=== PATIENT | female | born 1995 | race Caucasian/White ===

== ENCOUNTER → 2018-02-09 11:28 | Outpatient (CLI) | payer OTHER, SELFPAY ==
[2018-02-09 13:09] LABS: Estradiol 29.8 pg/mL; Prolactin 4.6 ng/mL
[2018-02-09 13:15] LABS: Pregnancy, Serum, hCG Quali. NEGATIVE Negative (0-9 Nonpreg)
[2018-02-11 20:05] LABS: DHEA Sulfate 368.2 ug/dL (110.0-431.7)
[2018-02-13 11:11] LABS: Testosterone Free 1.3 pg/mL (0.0-4.2)
== END ==
LOC: POLAB3 11:31
PROVIDERS: Family Provider Physician Assistant; PCP Physician Assistant; Visit Provider Nurse Practitioner Women's Health
DX: N92.6 Irregular menstruation, unspecified (principal)
CPT/HCPCS: 36415; 82627; 82670; 83001; 84146; 84402; 84443; 84703; 82626

== ENCOUNTER → 2019-06-06 14:54 | Outpatient (CLI) | payer OTHER, SELFPAY ==
[2018-02-09 11:08] VITALS: BMI 37.9
[2019-06-06 16:05] LABS: hCG Titer Quant., Serum < 1 mIU/mL (1-3)
== END ==
PROVIDERS: Nurse Practitioner Women's Health; Family Provider Family Medicine; PCP Family Medicine; Referring Provider Obstetrics & Gynecology; Visit Provider Obstetrics & Gynecology
DX: N92.6 Irregular menstruation, unspecified (principal)
CPT/HCPCS: 36415; 84702

== ENCOUNTER → 2019-09-06 14:25 | Outpatient (CLI) | payer OTHER, SELFPAY ==
[2019-08-20 13:50] VITALS: BMI 37.9
[2019-09-06 17:10] LABS: Estradiol 37.4 pg/mL; Follicle Stimulating Hormone 5.2 mIU/mL; Prolactin 9.8 ng/mL; T4 Free Direct 0.93 ng/dL (0.76-1.46); Thyroid Stim Hormone (TSH) 1.21 uIU/mL (0.358-3.74)
[2019-09-09 20:07] LABS: DHEA Sulfate 398.4 ug/dL (110.0-431.7)
[2019-09-10 11:35] LABS: Testosterone Free 2.6 pg/mL (0.0-4.2)
== END ==
LOC: PAVLAB 14:27
PROVIDERS: PCP Family Medicine; Visit Provider Obstetrics & Gynecology
DX: N92.6 Irregular menstruation, unspecified (principal); N91.1 Secondary amenorrhea
CPT/HCPCS: 36415; 82627; 82670; 83001; 84146; 84402; 84439; 84443; 82626

== ENCOUNTER → 2020-02-15 16:42 | Outpatient (CLI) | payer OTHER, SELFPAY ==
[2019-11-12 11:17] VITALS: BMI 37.9
[2020-02-15 17:41] LABS: hCG Titer Quant., Serum < 1 mIU/mL (1-3)
== END ==
PROVIDERS: PCP Family Medicine; Referring Provider Obstetrics & Gynecology; Visit Provider Obstetrics & Gynecology
DX: N92.6 Irregular menstruation, unspecified (principal)
CPT/HCPCS: 36415; 84702

== ENCOUNTER → 2020-05-06 11:06 | Outpatient (CLI) | payer OTHER, SELFPAY ==
[2019-11-12 11:17] VITALS: BMI 37.9
[2020-05-06 11:42] LABS: Thyroid Stim Hormone (TSH) 1.59 uIU/mL (0.358-3.74)
== END ==
PROVIDERS: PCP Family Medicine; Referring Provider Nurse Practitioner Women's Health; Visit Provider Nurse Practitioner Women's Health
DX: N97.0 Female infertility associated with anovulation (principal); Z13.29 Encounter for screening for other suspected endocrine disorder
CPT/HCPCS: 36415; 82670; 84443

== ENCOUNTER → 2020-08-18 15:28 | Outpatient (CLI) | payer OTHER, SELFPAY ==
[2020-08-18 14:53] VITALS: BMI 42.0
[2020-08-18 16:15] LABS: Hemoglobin A1c 5.2 % (3.8-5.6)
[2020-08-18 16:35] LABS: Follicle Stimulating Hormone 5.5 mIU/mL; Prolactin 9.5 ng/mL
[2020-08-18 16:36] LABS: hCG Titer Quant., Serum < 1 mIU/mL (1-3)
[2020-08-21 21:20] LABS: Testosterone Free 3.2 pg/mL (0.0-4.2)
== END ==
LOC: PAVLAB 15:31
PROVIDERS: PCP Family Medicine; Referring Provider Obstetrics & Gynecology; Visit Provider Obstetrics & Gynecology
DX: N92.6 Irregular menstruation, unspecified (principal)
CPT/HCPCS: 36415; 82627; 82670; 83001; 83036; 84146; 84402; 84443; 84702; 82626

== ENCOUNTER → 2020-08-21 14:18 | Outpatient (CLI) | payer OTHER, SELFPAY ==
[2020-08-18 14:53] VITALS: BMI 42.0
--- NOTE | 2020-08-21 14:20 | US_ITS ---
STUDY: ULTRASOUND OF THE FEMALE PELVIS - COMPLETE REASON FOR EXAM: Female, 25 years old. Irregular menses LMP: 06/30/2020. TECHNIQUE: Transabdominal and Transvaginal TECHNICAL QUALITY: Adequate. COMPARISON: None. FINDINGS: The uterus is anteverted and is in a midline position. The uterus measures 8.8 cm x 5.3 cm x 3.5 cm. There is a Nabothian cyst of the cervix. The endometrium measures 2.0 mm in thickness, and is hyperechoic. There is no demonstrated endometrial mass. There is no demonstrated myometrial mass. I.U.D. - The patient does not have an I.U.D. The right ovary is visualized. The right ovary measures 4.5 cm x 3 cm x 2.2 cm. There is no right ovarian cyst or ovarian mass. There is no visualized right adnexal mass or complex lesion. There is normal arterial and normal venous vascularity. The left ovary is visualized. The left ovary measures 3.2 cm x 4.2 cm x 2.0 cm. There is no left ovarian cyst or ovarian mass. There is no visualized left adnexal mass or complex lesion. There is normal arterial and normal venous vascularity. There is no fluid in the cul-de-sac. The pre void volume of the bladder was 462 ml. Polycystic ovary disease: No. US/Transvaginal Non- IMPRESSION: Normal female pelvis. Electronically Signed: Mason Rizvi MD at 15:08 EST , Service support ,
--- NOTE | 2020-08-21 14:20 | US_ITS ---
STUDY: ULTRASOUND OF THE FEMALE PELVIS - COMPLETE REASON FOR EXAM: Female, 25 years old. Irregular menses LMP: 06/30/2020. TECHNIQUE: Transabdominal and Transvaginal TECHNICAL QUALITY: Adequate. COMPARISON: None. FINDINGS: The uterus is anteverted and is in a midline position. The uterus measures 8.8 cm x 5.3 cm x 3.5 cm. There is a Nabothian cyst of the cervix. The endometrium measures 2.0 mm in thickness, and is hyperechoic. There is no demonstrated endometrial mass. There is no demonstrated myometrial mass. I.U.D. - The patient does not have an I.U.D. The right ovary is visualized. The right ovary measures 4.5 cm x 3 cm x 2.2 cm. There is no right ovarian cyst or ovarian mass. There is no visualized right adnexal mass or complex lesion. There is normal arterial and normal venous vascularity. The left ovary is visualized. The left ovary measures 3.2 cm x 4.2 cm x 2.0 cm. There is no left ovarian cyst or ovarian mass. There is no visualized left adnexal mass or complex lesion. There is normal arterial and normal venous vascularity. There is no fluid in the cul-de-sac. The pre void volume of the bladder was 462 ml. Polycystic ovary disease: No. US/Pelvic (Non ) IMPRESSION: Normal female pelvis. Electronically Signed: Mason Rizvi MD at 15:08 EST , Service support ,
== END ==
LOC: US 14:19
PROVIDERS: PCP Family Medicine; Referring Provider Obstetrics & Gynecology; Visit Provider Obstetrics & Gynecology
DX: N92.6 Irregular menstruation, unspecified (principal)
CPT/HCPCS: 76830; 76856

== ENCOUNTER 2022-02-19 15:13 | Emergency (ER) | payer SELFPAY ==
[2022-02-19 15:14] VITALS: BP 133/76; PULSE 87; RESP 16; TEMP 36.6; O2SAT 99; BMI 37.7
--- NOTE | 2022-02-19 15:25 | EDS_ITS ---
HPI <NIKITA Estrella - Last Filed: 02/19/22 15:31> History of Present Illness Chief Complaint: Dental Narrative Narrative: 26-year-old female with no signal medical history presents the emergency department 3 days of right upper jaw pain secondary to a broken tooth. Patient states that tooth is been broken for a while however over the last couple days been giving her problems. She called her dentist, he was unable to get her in until late next week. Patient states that due to the swelling, she is concerned for infection like antibiotics. She denies any fevers or chills, denies any nausea or vomiting. Denies any drainage from the area. PFSH <NIKITA Estrella - Last Filed: 02/19/22 15:31> PFSH Home Medications phentermine 37.5 mg capsule (Adipex-P) 37.5 mg PO DAILY #30 caps 11/17/20 [Rx Last Taken Unknown] ibuprofen 600 mg tablet 600 mg PO Q6H PRN PRN pain #20 tabs 02/19/22 [Rx Last Taken Unknown] penicillin V potassium 500 mg tablet 500 mg PO 4X/DAY #40 tabs 02/19/22 [Rx Last Taken Unknown] Allergy/AdvReac Type Severity Reaction Status Date / Time No Known Allergies Allergy Verified 02/19/22 15:14 Family History Father Diabetes Hypertension Grandfather Diabetes Grandmother Diabetes Surgical History S/P Social History (Updated 08/20/20 @ 07:[address] Miladis Couch MD) Smoking Status: Current every day smoker alcohol intake: current alcohol intake frequency: holidays/special occasions only substance use type: does not use caffeine: Yes what type of physical activity do you participate in: none seatbelt use: always do you feel safe at home: Yes additional social history: Laura Patient works at [employer] <NIKITA Estrella - Last Filed: 02/19/22 15:31> ROS ED ROS Narrative Constitutional: Negative for fever, chills, weight loss, weakness Eyes: Negative for vision loss, vision change, double vision ENT: Negative for any sore throat, ear pain, congestion. Positive for right upper tooth infection Cardiovascular: Negative for any chest pain, tightness, palpitations Respiratory: Negative for any cough, sputum production, hemoptysis, dyspnea, dyspnea on exertion, orthopnea Gastrointestinal: Negative for any abdominal pain, nausea, vomiting, diarrhea, constipation, blood in stool, blood in vomit : Negative for any urinary frequency, dysuria, retention, blood in urine Muscle skeletal: Negative for any muscle joint pain, stiffness, myalgias, arthralgias, neck pain, back pain Neurological: Negative for any headache, syncope, numbness or tingling, dizziness Skin: Negative for any rashes, lumps, itching, abrasions, lacerations Psychiatric: Negative for any depression, anxiety, stress, suicidal ideation, homicidal ideation Hematologic: Negative for any easy bruising, excessive bruising, easy bleeding Allergies: Negative for any eczema, hives, rash EXAM <NIKITA Estrella - Last Filed: 02/19/22 15:31> Physical Exam Narrative Exam Narrative: Vital signs reviewed. HEET: Head normocephalic atraumatic, TMs clear bilaterally. Posterior pharynx is clear, moist mucous membranes. Nares clear bilaterally. Patient has a broken tooth medially to the right upper jaw, the tooth is a premolar. There is no fluctuance of the gumline. There is no known drainage. It does appear to be some decay. Neck: Supple with no lymphadenopathy or tenderness. No signs of meningismus, negative jolt sign. Cardiac: Regular rate and rhythm no murmurs gallops or rubs, equal peripheral pulses bilaterally. Respiratory: Lungs clear to auscultation bilaterally. No chest tenderness. Abdomen: Soft, nontender, nondistended. No abdominal bruit or pulsatile masses. No hepatosplenomegaly Extremities: No peripheral edema, no signs of gross trauma or deformity. Active full range of motion of all extremities. Neuro: Cranial nerves II through XII intact, no focal neurological deficits. Skin: Clean dry and intact with no rash, purpura, petechiae, vesicles or pustules. Backs/flank: No CVA tenderness, no midline spinal tenderness, no deformity. Psych: Normal mood and affect. No SI, HI or acute psychosis. Const Vital Signs: 02/19/22 15:14 Temperature 97.8 F Temperature Source Temporal Pulse Rate 87 Respiratory Rate 16 Blood Pressure 133/76 H Blood Pressure Mean 95 Pulse Ox 99 Oxygen Delivery Method Room Air Positive well nourished and well developed General Appearance ED: well developed <Dr. Khris Villalobos MD - Last Filed: 02/19/22 15:43> Physical Exam Const Vital Signs: 02/19/22 15:14 Temperature 97.8 F Temperature Source Temporal Pulse Rate 87 Respiratory Rate 16 Blood Pressure 133/76 H Blood Pressure Mean 95 Pulse Ox 99 Oxygen Delivery Method Room Air MDM <NIKITA Estrella - Last Filed: 02/19/22 15:31> [facility] Treatment and Re-Evaluation Narrative: Patient appears well, patient appears nontoxic, vital signs are stable. Patient presents to the emergency department with complaints of pain to the right upper premolar. There is only slight erythema, negative for any fluctuance, there is nothing to drain. Negative for any trismus. Patient replaced on Pen-Vee K, ibuprofen. She will follow-up closely with her dentist appointment next week. Instructed return for any worsening symptoms. <Dr. Khris Villalobos MD - Last Filed: 02/19/22 15:43> [facility] Narrative Medical decision making narrative: I have personally performed a face to face assessment of the patient and have reviewed the BOUBACAR Note. I performed a substantive portion of the visit including all aspects of the following. My osorio findings include: History is [26-year-old female that he states that I am evaluated with our nurse practitioner. Patient planing of right upper dental pain.] Exam is [22-year-old female no acute distress. Vital signs stable afebrile. H EENT exam the right upper premolar patient states that there is tenderness and a fractured tooth. No bleeding. No abscess. No trismus. No facial swelling. No trouble swallowing or breathing. Otherwise exam unremarkable. Lungs are clear. Heart regular rate and rhythm.] Medical Decision Making [patient started on Pen-Vee K as an antibiotic and Naprosyn for pain.] Other additions or changes: [None] Discharge Plan Triage Chief Complaint: Dental ED Midlevel Provider: Yevgeniy Bustamante ED Provider: Khris Villalobos Dx/Rx/DC Orders Clinical Impression: Dental caries Instructions: Understanding Tooth Decay, ED Dental Cavity Prescriptions: New penicillin V potassium 500 mg tablet 500 mg PO 4X/DAY Qty: 40 0RF ibuprofen 600 mg tablet 600 mg PO Q6H PRN PRN (Reason: pain) Qty: 20 0RF No Action phentermine [Adipex-P] 37.5 mg capsule 37.5 mg PO DAILY Qty: 30 0RF Rx Instructions: must administer 30 minutes before or 1-2 hours after breakfast Primary Care Provider: Pavithra Thomason Referrals: Pavithra Thomason DO [Primary Care Provider] - Activity Restrictions/Additional Instructions: Please follow-up with your dentist this upcoming week Disposition Disposition: Home, Self Care
== END 2022-02-19 16:15 | disposition home or self-care (01) ==
PROVIDERS: Emergency Provider Emergency Medicine; PCP Family Medicine; Visit Provider Emergency Medicine
DX: K02.9 Dental caries, unspecified (principal); F17.200 Nicotine dependence, unspecified, uncomplicated
CPT/HCPCS: 99282

== ENCOUNTER → 2022-07-09 | Outpatient (CLI) | payer MEDICAID, SELFPAY ==
[2022-07-13 03:06] LABS: Chlamydia By Nucleic Acid AMP Negative (Negative)
[2022-07-13 12:45] LABS: Gonococcus By Nucleic Acid AMP Negative (Negative)
== END | disposition home or self-care (01) ==
LOC: LABSPEC 14:41
PROVIDERS: PCP Family Medicine; Visit Provider Obstetrics & Gynecology
DX: N89.8 Other specified noninflammatory disorders of vagina (principal); Z11.3 Encounter for screening for infections with a predominantly sexual mode of transmission
CPT/HCPCS: 87070; 87077; 87186; 87205; 87491; 87591

== ENCOUNTER 2022-09-15 10:03 | Outpatient (RCR) | payer MEDICAID, SELFPAY | END 2022-09-21 23:59 | LOC: NS 10:03 | PROVIDERS: PCP Family Medicine; Visit Provider Obstetrics & Gynecology | DX: Z71.3 Dietary counseling and surveillance (principal); E66.01 Morbid (severe) obesity due to excess calories; Z68.41 Body mass index [BMI] 40.0-44.9, adult; E28.2 Polycystic ovarian syndrome | CPT/HCPCS: 97802 ==

== ENCOUNTER → 2022-09-29 | Outpatient (CLI) | payer MEDICAID, SELFPAY ==
[2022-09-29 11:07] LABS: Cholesterol 161 mg/dL (200); Glucose 96 mg/dL (74-106); High Density Lipoprotein 35 mg/dL; Triglycerides 181 mg/dL; Very Low Density Lipoprotein 36 mg/dL (5-40)
== END | disposition home or self-care (01) ==
LOC: PAVLAB 10:02
PROVIDERS: PCP Family Medicine; Referring Provider Obstetrics & Gynecology; Visit Provider Obstetrics & Gynecology
DX: E28.2 Polycystic ovarian syndrome (principal)
CPT/HCPCS: 36415; 80061; 82947; 83036; 84443

== ENCOUNTER 2022-10-12 14:47 | Outpatient (RCR) | payer MEDICAID, SELFPAY | END 2022-10-22 23:59 | LOC: NS 14:47 | PROVIDERS: PCP Family Medicine; Visit Provider Obstetrics & Gynecology | DX: Z71.3 Dietary counseling and surveillance (principal); E66.01 Morbid (severe) obesity due to excess calories; Z68.41 Body mass index [BMI] 40.0-44.9, adult; E28.2 Polycystic ovarian syndrome | CPT/HCPCS: 97803 ==

== ENCOUNTER 2022-11-09 14:21 | Outpatient (RCR) | payer MEDICAID, SELFPAY | END 2022-11-21 23:59 | LOC: NS 14:21 | PROVIDERS: PCP Family Medicine; Referring Provider Obstetrics & Gynecology; Visit Provider Obstetrics & Gynecology | DX: Z71.3 Dietary counseling and surveillance (principal); E66.01 Morbid (severe) obesity due to excess calories; Z68.41 Body mass index [BMI] 40.0-44.9, adult; E28.2 Polycystic ovarian syndrome | CPT/HCPCS: 97803 ==

== ENCOUNTER 2022-11-23 14:33 | Outpatient (RCR) | payer MEDICAID, SELFPAY | END 2022-12-22 23:59 | LOC: NS 14:33 | PROVIDERS: PCP Family Medicine; Referring Provider Obstetrics & Gynecology; Visit Provider Obstetrics & Gynecology | DX: Z71.3 Dietary counseling and surveillance (principal); E66.01 Morbid (severe) obesity due to excess calories; Z68.41 Body mass index [BMI] 40.0-44.9, adult; E28.2 Polycystic ovarian syndrome | CPT/HCPCS: 97803 ==

== ENCOUNTER 2022-12-27 11:50 | Outpatient (RCR) | payer MEDICAID, SELFPAY | END 2023-01-21 23:59 | LOC: NS 11:50 | PROVIDERS: PCP Family Medicine; Referring Provider Obstetrics & Gynecology; Visit Provider Obstetrics & Gynecology | DX: Z71.3 Dietary counseling and surveillance (principal); E66.01 Morbid (severe) obesity due to excess calories; Z68.41 Body mass index [BMI] 40.0-44.9, adult; E28.2 Polycystic ovarian syndrome | CPT/HCPCS: 97803 ==

== ENCOUNTER 2023-08-13 14:57 | Emergency (ER) | payer MEDICAID, SELFPAY ==
[2023-08-13 14:58] VITALS: BP 131/63; PULSE 102; RESP 18; TEMP 36.6; O2SAT 100; BMI 39.6
--- NOTE | 2023-08-13 15:10 | RAD_ITS ---
STUDY: X-RAY - RIGHT ANKLE REASON FOR EXAM: Female, 27 years old. pain TECHNIQUE: 3 view(s) of the ankle. COMPARISON: None. FINDINGS: Normal visualized distal tibia and fibula. Normal medial and lateral malleoli. Normal tibiotalar articulation and ankle mortise. Normal visualized talus and calcaneus. The visualized subtalar, talonavicular, calcaneocuboid and tarsal articulations are normal. Lateral soft tissue swelling is present. RAD/Ankle min 3 Views IMPRESSION: No evidence of acute fracture or dislocation. Electronically Signed: Hao Stover DO at 15:23 [facility] ,
--- NOTE | 2023-08-13 15:12 | EDS_ITS ---
<Statement entered by Gabriela Valenzuela MD - 08/13/23 17:48> I have personally performed a face to face assessment of the patient and have reviewed the BOUBACAR Note. Patient presents secondary to right lower extremity pain. She states she was rollerskating yesterday and now has pain to the lower portion of her right leg with weightbearing. She does have some swelling along the lateral aspect. She denies problems with her ankles previously. Patient sitting upright in bed no acute distress. Head and neck examination was no external sign of trauma. Right lower extremity examination feels mild edema over the lateral malleolus. No focal tenderness with palpation. Achilles is intact with no pain. Good distal pulses. No tenderness at the knee or proximal fibula. Right ankle x-rays were obtained and negative per my interpretation. Radiology interpretation reviewed and agrees. Sam wrap applied and patient instructed on appropriate elevation and ice usage to help with swelling. Return instructions provided. HPI History of Present Illness Chief Complaint: Lower Extremity Injury Narrative Narrative: Patient presenting today due to swelling to her right ankle that she has had since yesterday. She reports that she feels a lot of pressure to her ankle and pain to the distal aspect of her right calf when she walks. She reports that this all started after she was roller skating and accidentally fell last night, she reports that she heard a pop at that time. She is able to ambulate without difficulty. [facility] Medical History PCOS (polycystic ovarian syndrome) Home Medications phentermine 37.5 mg tablet (Adipex-P) 18.75 mg (1/2 x 37.5 mg) PO QDAY #15 tabs 03/03/23 [Rx Last Taken Unknown] Allergy/AdvReac Type Severity Reaction Status Date / Time No Known Allergies Allergy Verified 08/13/23 14:58 Family History Father Diabetes Hypertension Grandfather Diabetes Grandmother Diabetes Surgical History S/P Social History Smoking Status: Current every day smoker tobacco type: cigarettes alcohol intake: current alcohol intake frequency: holidays/special occasions only substance use type: does not use caffeine: Yes what type of physical activity do you participate in: none seatbelt use: always do you feel safe at home: Yes additional social history: Engaged-[employer] ED Constitutional Constitutional ED: Denies chills or fever(s) Cardiovascular Cardiovascular: Denies chest pain Respiratory/Chest Respiratory/Chest: Denies cough or dyspnea Gastrointestinal Gastrointestinal: Denies abdominal pain, nausea or vomiting Musculoskeletal Musculoskeletal: Reports arthralgias; Denies myalgias Integumentary Denies rash Neurologic Neurologic: Denies paresthesias or weakness EXAM Physical Exam Const Vital Signs: 08/13/23 14:58 08/13/23 15:37 Temperature 97.9 F Temperature Source Temporal Pulse Rate 102 H 102 H Respiratory Rate 18 16 Blood Pressure 131/63 H 114/70 Blood Pressure Mean 85 84 Pulse Ox 100 98 Oxygen Delivery Method Room Air Positive well nourished, well developed and no apparent distress General Appearance ED: well developed HEENT Reports normocephalic and head/scalp atraumatic Mouth ED: Yes moist mucous membranes normal Eyes PERRL and EOMs intact bilaterally Neck full ROM and supple Chest Wall inspection of chest normal Resp normal respiratory effort and clear to auscultation bilaterally Cardio regular rate and regular rhythm GI soft to palpation, non-tender, non-distended and no masses Back/Spine normal ROM and normal to inspection Extremity full ROM Extremity Narrative: Slight edema to the right lateral malleolus, no pain to the bilateral or medial malleolus, foot, or tibia/fibula. No pain along the Achilles.minimal tenderness to the distal posterior calf. No asymmetric calf swelling. Right DP pulse 2+, good capillary refill, sensation intact. Neuro oriented x3, CN's II-XII intact bilaterally, moves all extremities, no focal motor deficits and no sensory deficits noted Sensorium / Orientation: awake and alert Psych mental status grossly normal and thought process normal Skin no rashes or lesions noted and no wounds MDM MDM MDM Narrative Medical decision making narrative: Patient presenting today with swelling to the right lateral malleolus and pain to the distal aspect of her right calf after falling while rollerskating last night. She is able to ambulate. X-ray of the right ankle obtained, this is negative for any fracture, distal tibia/fibula also visualized and is negative for fracture. She has been given an Sam bandage and RICE instructions. She can alternate Tylenol and ibuprofen for pain as needed. She will be discharged home in stable condition and is comfortable with plan. Radiography X-Ray: Read by ED Physician and Read by Radiologist Diagnostic Testing: Clinical Impression(s) from Imaging Studies Ankle X-Ray 08/13/23 15:10 IMPRESSION: No evidence of acute fracture or dislocation. Electronically Signed: Hao Stover DO at 15:23 EST , Discharge Plan Triage Chief Complaint: Lower Extremity Injury ED Midlevel Provider: Sarah Barbosa ED Provider: Gabriela Valenzuela Dx/Rx/DC Orders Clinical Impression: Muscle strain of right lower extremity, Right ankle sprain Instructions: ED Muscle Strain, Extremity, ED Ankle Sprain (Adult) Prescriptions: No Action phentermine [Adipex-P] 37.5 mg tablet 18.75 mg PO QDAY Qty: 15 2RF Rx Instructions: bmi [id number] Primary Care Provider: Pavithra Thomason Referrals: Pavithra Thomason DO [Primary Care Provider] - 3-5 Days if not improving Activity Restrictions/Additional Instructions: Ice the area a few times a day for 10 to 15 minutes at a time for the next few days. You can alternate Tylenol and ibuprofen for your pain as needed. Disposition Disposition: Home, Self Care Discharge Date/Time: 08/13/23 15:38
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
[2023-08-13 15:37] VITALS: BP 114/70; PULSE 102; RESP 16; O2SAT 98
== END 2023-08-13 15:38 | disposition home or self-care (01) ==
PROVIDERS: Emergency Provider Emergency Medicine; PCP Family Medicine; Visit Provider Emergency Medicine
DX: S86.911A Strain of unspecified muscle(s) and tendon(s) at lower leg level, right leg, initial encounter (principal); S93.401A Sprain of unspecified ligament of right ankle, initial encounter; F17.210 Nicotine dependence, cigarettes, uncomplicated; W19.XXXA Unspecified fall, initial encounter
CPT/HCPCS: 73610; 99282

== ENCOUNTER → 2023-09-22 | Outpatient (CLI) | payer MEDICAID, SELFPAY ==
--- NOTE | 2023-09-22 13:51 | US_ITS ---
STUDY: FIRST TRIMESTER OBSTETRICAL ULTRASOUND REASON FOR EXAM: Female, 28 years old spotting in early -- or 09/22 LMP: August 30, 2023. TECHNIQUE: Transvaginal TECHNICAL QUALITY: Adequate. PRIOR ULTRASOUND: None. FINDINGS: There is visualization of a single gestational sac in a normal intrauterine position. The mean sac diameter (MSD) measures 9 mm, indicating an estimated gestational age (EGA) of 5 weeks, 5 days. The gestational sac shape is within normal limits. There is no demonstrated yolk sac. The placenta is non-visualized. There is no demonstrated embryo ( pole). The estimated gestation age (EGA) by LMP is 5 weeks, 2 days. The estimated date of delivery (PEREZ) by LMP is May 22, 2024. The estimated gestation age (EGA) by US is 5 weeks, 5 days. The estimated date of delivery (PEREZ) by US is May 19, 2024. The uterus measures 4.8 cm x 6.8 cm x 6 cm. There is no demonstrated uterine fibroid. The cervix is closed. The right ovary measures 2.7 cm x 4.2 cm x 2.4 cm. There is no right ovarian cyst. There is no visualized right adnexal mass or complex lesion. The left ovary measures 3.1 cm x 4.1 cm x 1.9 cm. Small regressing corpus luteum cyst. There is no visualized left adnexal mass or complex lesion. There is no fluid in the cul de sac. US/Transvaginal w/Preg US IMPRESSION: Single intrauterine gestation with a mean gestational age of 5 weeks and 5 days. No pole is seen at this time. Follow-up recommended. Electronically Signed: Mason Rizvi MD at 15:10 EST ,
== END | disposition home or self-care (01) ==
LOC: OPUS 13:51
PROVIDERS: PCP Family Medicine; Referring Provider Obstetrics & Gynecology; Visit Provider Obstetrics & Gynecology
DX: O26.859 Spotting complicating pregnancy, unspecified trimester (principal); Z3A.00 Weeks of gestation of pregnancy not specified
CPT/HCPCS: 36415; 76817; 84702

== ENCOUNTER → 2023-09-22 | Outpatient (CLI) | payer MEDICAID, SELFPAY ==
[2023-09-22 11:48] LABS: hCG Titer Quant., Serum 7673 mIU/mL (1-3)
== END | disposition home or self-care (01) ==
LOC: PAVLAB 10:38
PROVIDERS: PCP Family Medicine; Referring Provider Obstetrics & Gynecology; Visit Provider Obstetrics & Gynecology
DX: O36.80X0 Pregnancy with inconclusive fetal viability, not applicable or unspecified (principal); O99.891 Other specified diseases and conditions complicating pregnancy; N91.2 Amenorrhea, unspecified; Z3A.00 Weeks of gestation of pregnancy not specified
CPT/HCPCS: 36415; 84702

== ENCOUNTER → 2023-09-24 | Outpatient (CLI) | payer MEDICAID, SELFPAY ==
--- OUTSIDE RECORDS SUMMARY | 2023-09-24 12:09 | XMS RPT_ITS | CCD ---
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 Name Role Phone BIRD AHMADI DO Primary Care Physician [phone] DR GENE MORENO Admitting Unavailable BIRD AHMADI [...] tab(s), 0 Refill(s), 07/09/22 8:52:00 EST, Pharmacy: [facility]/pharmacy #[id number], 162, cm, 07/02/22 8:25:00 EST, Height, 102.2 [...] qDay, # 30 tab(s), 3 Refill(s), Pharmacy: [facility]/pharmacy #[id number], Bilateral wrist pain Bilateral finger numbness, 160, [...] End: 07-06-2022 Outreach Lab ARYA SONG MD [facility] Start: 04-09-2022 End: 04-10-2022 Emergency department patient visit DR GENE MORENO [facility] Start: 12-09-2021 End: 12-10-2021 ambulatory BIRD AHMADI DO Facility:B Start: 12-09-2021 End: 12-09-2021 Patient encounter procedure BIRD AHMADI DO [facility] Start: 11-26-2021 End: 12-01-2021 ambulatory BIRD AHMADI DO Facility:B Start: 11-26-2021 End: 12-01-2021 Encounter for gynecological examination (general) (routine) without abnormal findings BIRD AHMADI DO Facility:B Start: 11-26-2021 End: 11-30-2021 Outreach Lab BIRD AHMADI DO [facility] Procedures Date Procedure Procedure Detail Performing Clinician Start: 09-04-2016 section JENIFER AHMADI DO Immunizations Immunization Date Immunization Notes Care Provider Fa sidney 09-05-2016 measles/mumps/rubell a virus vaccine BIRD AHMADI DO [facility] 06-07-2016 tetanus toxoid, redu judith diphtheria toxoid, and acellular pertussis vaccine, adsorbed BIRD AHMADI DO [facility] 04-24-2016 influenza virus vacc ine, unspecified formulation BIRD AHMADI DO [facility] 04-13-2016 influenza virus vacc ine, unspecified formulation BIRD AHMADI DO [facility] 03-03-2009 Human Papillomavirus Quadval BIRD AHMADI DO [facility] 11-01-2008 Human Papillomavirus Quadval BIRD AHMADI DO [facility] 09-03-2008 Human Papillomavirus Quadval BIRD AHMADI DO [facility] 03-17-2001 measles/mumps/rubell a virus vaccine BIRD AHMADI DO [facility] 03-17-2001 poliovirus vaccine, inactivated BIRD AHMADI DO [facility] Payers Date Payer Category Payer Medicaid [id number] 1995 Unknown [id number] [id number] 1995 Unknown [id number] 2.16.8 [id number] 1995 Unknown [id number] 2.16.8 [id number] 1995 Unknown [id number] 2.16.8 [id number] Unknown [id number] Social History Date Type Detail Facility Start: 03-17-2019 Tobacco smoking status Heavy t obacco smoker (finding) [facility] Clinical Note 07-04-2022 Note Date & Type [...] Locations *1: This test was performed at: [facility], [address] [place] [address], [facility] , [facility] ([place]) Evaluation + Plan note Laboratory Note Date & Type Note Facility Evaluation + Plan note Future Appointments Appointment Date:06/02/2022 10:30:00 AM Scheduled Provider:BIRD AHMADI DO Location:[facility] Appointment Type:PC OV Follow Up Future Scheduled TestsPathology Dark Room Attendant Request 11/26/21Thyroid Stimulating Hormone 11/26/21Lipid Profile 11/26/21Hepatitis C Antibody IgG 11/26/21Complete Metabolic Panel 11/26/21 [facility] Evaluation + Plan note Laboratory Note Date & Type Note Facility Evaluation + Plan note Future Appointments Appointment Date:06/02/2022 10:30:00 AM Scheduled Provider:BIRD AHMADI DO Location:[facility] Appointment Type:PC OV Follow Up Future Scheduled TestsPathology Dark Room Attendant Request 11/26/21 [facility] Evaluation + Plan note Laboratory Note Date & Type Note Facility Evaluation + Plan note Future Appointments Appointment Date:12/02/2022 02:30:00 PM Scheduled Provider:BIRD AHMADI DO Location:[facility] Appointment Type:PC Wellness Annual Future Scheduled TestsPathology Dark Room Attendant Request 11/26/21Urine Culture 07/02/22 [facility] Hospital course Narrative Note Date & Type Note Facility Hospital course Narrative No data available for this section [facility] Hospital Discharge instructions Note Date & Type Note Facility Hospital Discharge instructions No data available for this section [facility] Progress note Note Date & Type Note Facility Progress note No data available for this section [facility] Summary Purpose Family History No Family History Records FoundNo Family History Records Found Advance Directives No Advanced Directives Records FoundNo Advanced Directives Records Found Additional Source Comments Care Team (unrecognized sect ion and content) Personnel Name: BIRD AHMADI DO Address: [address] [place] [address] Personnel Name: BIRD AHMADI DO Address: [address] [place] [address] INFORMATION SOURCE (unrecogn ized section and content) DATE CREATED AUTHOR AUTHOR'S ORGANIZ ATION 07/07/2022 [facility]) Care Team (unrecognized sect ion and content) Care Team Personnel Name: BIRD AHMADI DO Position: P4 Physician - Primary Care Member Role: Primary Care Physician Address: Address: [address] [place] [address] Care Team Related Persons Name: JOSIE CHING Address: Home [address] [phone] [place] Address: Temporary [address] [phone] Name: AUDI PACO FOR RECORDS PERTAINING TO [...] BE BASED ON THE PRIMARY CLINICAL RECORDS. [facility]. provides no warranty or guarantee of the accuracy or completeness of information in this document.
[2023-09-24 13:29] LABS: hCG Titer Quant., Serum 11075 mIU/mL (1-3)
== END | disposition home or self-care (01) ==
LOC: OPUS 12:07
PROVIDERS: PCP Family Medicine; Visit Provider Obstetrics & Gynecology
DX: O26.859 Spotting complicating pregnancy, unspecified trimester (principal); Z3A.00 Weeks of gestation of pregnancy not specified
CPT/HCPCS: 36415; 84702; 86850; 86900; 86901

== ENCOUNTER → 2023-09-28 | Outpatient (CLI) | payer MEDICAID, SELFPAY ==
--- NOTE | 2023-09-28 09:00 | US_ITS ---
INDICATION: viability -- Stat read, patient has office appt. after EXAMINATION: Ultrasound US OB Less Than 14 Weeks TECHNIQUE: Transabdominal and transvaginal (for optimal evaluation of the adnexa) pelvic ultrasound was performed. Grayscale, spectral waveform, and color flow Doppler evaluation of the adnexa. COMPARISON: Prior study dated: 09/22/2023 LMP: [Unknown Beta-hCG: Unknown FINDINGS: UTERUS: The uterus measures about 13 x 6.3 x 4.9 cm. The cervix is closed.. RIGHT OVARY: Not visualized. LEFT OVARY: The left ovary measures 3.6 x 2.7 x 2 cm. Normal. FREE FLUID: None. INTRAUTERINE GESTATIONAL SAC(s) (size/shape): Single. Intrauterine gestational sac measuring about 1.5 cm in mean sac diameter. YOLK SAC: Identified measuring about 2 mm. POLE: Identified CRL 4 mm. ESTIMATED GESTATION AGE: 6 weeks and 2 days. HEART MOTION: 116 bpm. PLACENTA: Not visualized due to age. SUBCHORIONIC HEMORRHAGE: None. AMNIOTIC FLUID: Qualitatively normal. US/Init OB < 14Wks US IMPRESSION: Single live intrauterine . Estimated gestational age is 6 weeks and 2 days. The PEREZ is 05/21/2024. Electronically Signed: Paresh Raya MD at 9:59 EST ,
== END | disposition home or self-care (01) ==
LOC: OPUS 08:59
PROVIDERS: PCP Family Medicine; Referring Provider Obstetrics & Gynecology; Visit Provider Obstetrics & Gynecology
DX: O26.859 Spotting complicating pregnancy, unspecified trimester (principal); Z3A.00 Weeks of gestation of pregnancy not specified
CPT/HCPCS: 76801

== ENCOUNTER → 2023-10-10 | Outpatient (CLI) | payer MEDICAID, SELFPAY ==
[2023-10-11 21:07] LABS: Chlamydia By Nucleic Acid AMP Negative (Negative); Gonococcus By Nucleic Acid AMP Negative (Negative)
== END | disposition home or self-care (01) ==
LOC: LABSPEC 11:09
PROVIDERS: PCP Family Medicine; Referring Provider Obstetrics & Gynecology; Visit Provider Obstetrics & Gynecology
DX: Z34.90 Encounter for supervision of normal pregnancy, unspecified, unspecified trimester (principal)
CPT/HCPCS: 87086; 87088; 87491; 87591

== ENCOUNTER → 2023-11-08 | Outpatient (CLI) | payer MEDICAID, SELFPAY ==
[2023-11-08 13:29] LABS: Absolute Lymphocyte Count 2.15 X10^3/uL (0.83-4.51); Absolute Neutrophil Count 11.5 X10^3/uL (2.0-7.7); Basophil# 0.05 X10^3/uL; Basophil% 0.3 % (0-1); Eosinophil# 0.08 X10^3/uL; Eosinophils% 0.6 % (0-5); Hematocrit 37.7 % (37-47); Hemoglobin 12.6 g/dL (12.0-15.0); Lymphocyte # 2.15 X10^3/ul (0.83-4.51); Lymphocyte % 14.8 % (19-41); Mean Corp Hgb Conc 33.4 g/dL (32-36); Mean Corpuscular Hgb 29.7 pg (27.0-32.0); Mean Corpuscular Volume 88.9 fL (81-99); Monocyte# 0.65 X10^3/uL; Monocyte% 4.5 % (0-10); NRBC Flagged by Analyzer 0 % (0-5); Neutrophil # 11.45 X10^3/uL (2.7-7.7); Neutrophil % 78.8 % (47-70); Platelet Count 333 K/mm3 (150-450); RBC Distribution Width CV 12.6 % (11.6-14.6); RBC Distribution Width SD 41.1 fl (35.1-43.9); Red Blood Count 4.24 M/mm3 (4.2-5.4); White Blood Count 14.5 K/mm3 (4.4-11.0)
[2023-11-08 14:12] LABS: Hemoglobin A1c 4.9 % (3.8-5.6)
[2023-11-08 14:35] LABS: HIV - WCH Non-Reactive (Nonreactive); Hepatitis B Surface Antigen Non-Reactive (Nonreactive); Hepatitis C Antibody Non-Reactive (Nonreactive); Rubella IgG Reactive (Nonreactive); Syphilis Antibodies Non-reactive
== END | disposition home or self-care (01) ==
LOC: LAB 12:24
PROVIDERS: PCP Family Medicine; Referring Provider Obstetrics & Gynecology; Visit Provider Obstetrics & Gynecology
DX: Z34.90 Encounter for supervision of normal pregnancy, unspecified, unspecified trimester (principal)
CPT/HCPCS: 36415; 83036; 85025; 86703; 86762; 86780; 86803; 86850; 86900; 86901; 87340

== ENCOUNTER → 2024-02-10 | Outpatient (CLI) | payer MEDICAID, SELFPAY ==
--- NOTE | 2024-02-10 12:16 | US_ITS ---
STUDY: SECOND AND THIRD TRIMESTER OBSTETRICAL ULTRASOUND - LIMITED REASON FOR EXAM: Female, 28 years old obesity in , LMP: August 16, 2023. PRIOR ULTRASOUND: Comparison is made with prior study September 28, 2023. TECHNIQUE: Transabdominal TECHNICAL QUALITY: Adequate. FINDINGS: There is a single intrauterine fetus. The fetus is in a cephalic presentation. There is demonstrated cardiac activity with a heart rate of 138 bpm. There is a normal amniotic fluid volume. The largest amniotic fluid pocket measures 5.2 cm x 3.6 cm. The amniotic fluid index (BOSSMAN) is 13.8 cm. The placenta is posterior in location and is not low lying. There are Grade 0 placental changes. The cervix measures 5.8 cm in length. BIOMETRY: BPD: 6.65 cm: 26 weeks, 6 days HC: 24.35 cm: 26 weeks, 3 days AC: 22.67 cm: 27 weeks, 0 days FL: 4.75 cm: 25 weeks, 6 days Age by LMP: 25 weeks, 3 days. PEREZ by LMP: May 22, 2024. age by prior US: 25 weeks, 4 days. PEREZ by prior US: May 21, 2024. age by current US: 26 weeks, 2 days. PEREZ by current US: May 16, 2024. Estimated weight: 916 grams, +/- 145 grams, 88 percentile. US/OB Limited With Biometrics IMPRESSION: Single live intrauterine gestation with a mean gestational age of 25 weeks and 4 days. The measurements obtained today following within normal expected range. Electronically Signed: Mason Rizvi MD at 14:48 EDT ,
== END | disposition home or self-care (01) ==
LOC: OPUS 12:15
PROVIDERS: PCP Family Medicine; Referring Provider Obstetrics & Gynecology; Visit Provider Obstetrics & Gynecology
DX: O99.212 Obesity complicating pregnancy, second trimester (principal); E66.01 Morbid (severe) obesity due to excess calories; Z3A.00 Weeks of gestation of pregnancy not specified
CPT/HCPCS: 76816

== ENCOUNTER → 2024-02-29 | Outpatient (CLI) | payer MEDICAID, SELFPAY ==
[2024-02-29 10:46] LABS: Absolute Lymphocyte Count 1.59 X10^3/uL (0.83-4.51); Absolute Neutrophil Count 10.4 X10^3/uL (2.0-7.7); Basophil# 0.06 X10^3/uL; Basophil% 0.5 % (0-1); Eosinophil# 0.07 X10^3/uL; Eosinophils% 0.5 % (0-5); Hematocrit 30.9 % (37-47); Hemoglobin 10.3 g/dL (12.0-15.0); Lymphocyte # 1.59 X10^3/ul (0.83-4.51); Lymphocyte % 12.2 % (19-41); Mean Corp Hgb Conc 33.3 g/dL (32-36); Mean Corpuscular Hgb 29.6 pg (27.0-32.0); Mean Corpuscular Volume 88.8 fL (81-99); Mean Platelet Vol. 8.8 fl (6.2-12.0); Monocyte# 0.47 X10^3/uL; Monocyte% 3.6 % (0-10); NRBC Flagged by Analyzer 0 % (0-5); Neutrophil # 10.38 X10^3/uL (2.7-7.7); Neutrophil % 79.7 % (47-70); Platelet Count 266 K/mm3 (150-450); RBC Distribution Width CV 14.1 % (11.6-14.6); RBC Distribution Width SD 45.1 fl (35.1-43.9); Red Blood Count 3.48 M/mm3 (4.2-5.4)
[2024-02-29 10:57] LABS: Glucose Challenge Gest 1H 50g 192 mg/dL (70-140)
[2024-02-29 15:59] LABS: HIV - WCH Non-Reactive (Nonreactive); Syphilis Antibodies Non-reactive
== END | disposition home or self-care (01) ==
LOC: PAVLAB 10:32
PROVIDERS: PCP Family Medicine; Referring Provider Obstetrics & Gynecology; Visit Provider Obstetrics & Gynecology
DX: O09.92 Supervision of high risk pregnancy, unspecified, second trimester (principal); Z3A.00 Weeks of gestation of pregnancy not specified
CPT/HCPCS: 36415; 82950; 85025; 86703; 86780; 86850; 86900; 86901

== ENCOUNTER 2024-03-20 20:40 | Outpatient (CLI) | payer MEDICAID, SELFPAY ==
[2024-03-20 20:58] VITALS: PULSE 104; O2SAT 97
[2024-03-20 21:00] VITALS: BP 136/69; PULSE 106
[2024-03-20 21:01] VITALS: RESP 16; TEMP 36.4
[2024-03-20 21:05] VITALS: BMI 42.5
[2024-03-20 21:41] LABS: Color, Urine Yellow (Yellow); Glucose, Dipstick Normal (Normal); Leukocyte Esterase-Dipstick Negative /ul (Negative); Nitrite-Dipstick Negative (Negative); Occult Blood-Urine Negative /ul (Negative); Protein-Dipstick 15 mg/dl (Negative); Specific Gravity, Urine 1.015 (1.002-1.030); Urine Bilirubin Dipstick Negative (Negative); Urine Clarity Clear (Clear); Urine Urobilinogen Normal (Normal); Urine pH 6.5 (5.0 - 8.0)
[2024-03-20 21:44] LABS: Ketone-Dipstick 150 mg/dl (Negative)
--- NOTE | 2024-03-21 06:28 | OB.TRI.PN ---
Progress Notes Date of Service: 03/20/24 Progress Note: Patient presents for triage evaluation secondary to contractions FHT: 125 Moderate variability reactive no decelerations category I tracing [place]: irregular Contractions Assessment and plan: threatened labor no significant dilation Reactive NST, reassuring maternal and status patient discharged to home to follow-up as scheduled. See problem list details for additional plan information. Laboratory Studies: Laboratory Tests 03/20/24 Range/Units 21:30 Urine Color Yellow (Yellow) Urine Clarity Clear (Clear) Urine pH 6.5 (5.0 - 8.0) Ur Specific [place] 1.015 (1.002-1.030) Urine Protein 15 H (Negative) mg/dl Urine Glucose (UA) Normal (Normal) mg/dl Urine Ketones 150 A* (Negative) mg/dl Urine Occult Blood Negative (Negative) /ul Urine Nitrite Negative (Negative) Urine Bilirubin Negative (Negative) mg/dL Urine Urobilinogen Normal (Normal) mg/dl Ur Leukocyte Esterase Negative (Negative) /ul Charges/Coding Procedures Urinary/Genital 52xxx-59xxx: [id number] non-stress test Interp Assessment & Plan (1) Threatened labor: (2) 31 weeks gestation of :
== END 2024-03-20 21:57 | disposition home or self-care (01) ==
LOC: WPOUT 20:46 → WP 20:46
PROVIDERS: PCP Family Medicine; Visit Provider Obstetrics & Gynecology
DX: O47.03 False labor before 37 completed weeks of gestation, third trimester (principal); Z3A.31 31 weeks gestation of pregnancy
CPT/HCPCS: 59025; 59050; 81002; 87086; 99221; G0378

== ENCOUNTER → 2024-04-25 | Outpatient (CLI) | payer MEDICAID, SELFPAY ==
--- NOTE | 2024-04-25 11:21 | US_ITS ---
STUDY: SECOND AND THIRD TRIMESTER OBSTETRICAL ULTRASOUND REASON FOR EXAM: Female, 28 years old gestational diabetes LMP: August 16, 2023. TECHNIQUE: Transabdominal TECHNICAL QUALITY: Adequate. PRIOR ULTRASOUND: Comparison is made with prior study February 10, 2024. FINDINGS: There is a single intrauterine fetus. The fetus is in a breech presentation. There is demonstrated cardiac activity with a heart rate of 154 bpm. There is a normal amniotic fluid volume. The largest amniotic fluid pocket measures 7 cm. The amniotic fluid index (BOSSMAN) is 18.6 cm. The placenta is posterior in location and is not low lying. There are Grade 2 placental changes. The cervix measures 3.5 cm in length. The adnexal regions are not visualized. BIOMETRY: BPD: 9.04 cm: 36 weeks, 4 days: 73% HC: 32.41 cm: 36 weeks, 5 days: 32% AC: 35.24 cm: 39 weeks, 1 days: 100% FL: 6.64 cm: 34 weeks, 1 days CI: 80% FL/BPD: 74% FL/HC: 21% FL/AC: 19% HC/AC: 0.92 age by current US: 36 weeks, 5 days. PEREZ by current US: May 18, 2024. Estimated weight: 3261 grams, +/- 489 grams, 87 %. age by prior US: 37 weeks, 0 days. PEREZ by prior US: May 16, 2024. Age by LMP: 36 weeks, 1 days. PEREZ by LMP: May 22, 2024. US/OB Limited With Biometrics IMPRESSION: Single live intrauterine gestation with a mean gestational age of 37 weeks. The measurements obtained today fall within the normal expected range. Electronically Signed: Mason Rizvi MD at 15:16 EDT ,
== END | disposition home or self-care (01) ==
LOC: US 11:20
PROVIDERS: PCP Family Medicine; Referring Provider Obstetrics & Gynecology; Visit Provider Obstetrics & Gynecology
DX: O24.419 Gestational diabetes mellitus in pregnancy, unspecified control (principal); Z3A.00 Weeks of gestation of pregnancy not specified
CPT/HCPCS: 76816

== ENCOUNTER → 2024-04-27 | Outpatient (CLI) | payer MEDICAID, SELFPAY | END | disposition home or self-care (01) | LOC: LABSPEC 15:41 | PROVIDERS: PCP Family Medicine; Referring Provider Obstetrics & Gynecology; Visit Provider Obstetrics & Gynecology | DX: O09.93 Supervision of high risk pregnancy, unspecified, third trimester (principal); Z3A.00 Weeks of gestation of pregnancy not specified | CPT/HCPCS: 87081 ==

== ENCOUNTER 2024-05-16 05:33 | Inpatient (IN) | payer MEDICAID, SELFPAY ==
[2024-05-16] VITALS (21 sets, daily range): BP systolic 102–133; BP diastolic 61–80; PULSE 68–100; RESP 16–24; TEMP 36.1–36.9; O2SAT 95–99; BMI 43.3
--- OUTSIDE RECORDS SUMMARY | 2024-05-16 05:36 | XMS RPT_ITS | CCD ---
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 #### H CV1 #### [place] [address] #### GFR, CMP, LIPID, TSH #### [address] [address] AST [Catalytic activity/Vol] 14 U/L Normal 10-40 [facility] ([place]) Comment on above: Performed By: #### H CV1 #### [place] [address] #### GFR, CMP, LIPID, TSH #### [address] [address] Bili Total 0.5 mg/dL Normal 0.2-1.0 [facility] ([place]) Comment on above: Result Comment: Use of this assay is not recommended for patients undergoing treatment with eltrombopag due to the potential for falsely elevated results. Performed By: #### H CV1 #### [place] [address] #### GFR, CMP, LIPID, TSH #### [address] [address] BUN/Creatinine Ratio 15 ratio Normal 7-27 [facility] ([place]) Comment on above: Performed By: #### H CV1 #### [place] [address] #### GFR, CMP, LIPID, TSH #### [address] [address] Calcium [Mass/Vol] 9.1 mg/dL Normal 8.4-10.2 [facility] ([place]) Comment on above: Performed By: #### H CV1 #### [place] [address] #### GFR, CMP, LIPID, TSH #### [address] [address] Chloride [Moles/Vol] 105 mmol/L Normal 98-107 [facility] ([place]) Comment on above: Performed By: #### H CV1 #### [address] [address] #### GFR, CMP, LIPID, TSH #### [address] [address] CO2 [Moles/Vol] 26 mmol/L Normal 22-29 [facility] ([place]) Comment on above: Performed By: #### H CV1 #### [place] [address] #### GFR, CMP, LIPID, TSH #### [address] [address] Creatinine [Mass/Vol] 0.78 mg/dL Normal 0.55-1.02 [facility] ([place]) Comment on above: Performed By: #### H CV1 #### [place] [address] #### GFR, CMP, LIPID, TSH #### [address] [address] Electrolyte Balance 9.0 mEq/L Normal 4.0-15.0 [facility] ([place]) Comment on above: Performed By: #### H CV1 #### [place] [address] #### GFR, CMP, LIPID, TSH #### [address] [address] Globulin 3.6 G/dL Normal [facility] ([place]) Comment on above: Performed By: #### H CV1 #### [place] [address] #### GFR, CMP, LIPID, TSH #### [address] [address] Glucose [Mass/Vol] 80 mg/dL Normal 70-105 [facility] ([place]) Comment on above: Performed By: #### H CV1 #### [place] [address] #### GFR, CMP, LIPID, TSH #### [address] [address] Potassium [Moles/Vol] 4.6 mmol/L Normal 3.5-5.1 [facility] ([place]) Comment on above: Performed By: #### H CV1 #### [place] [address] #### GFR, CMP, LIPID, TSH #### [place] [address] [place], [place] [address] Sodium [Moles/Vol] 140 mmol/L Normal 136-145 [facility] ([place]) Comment on above: Performed By: #### H CV1 #### [place] [address] #### GFR, CMP, LIPID, TSH #### [address] [address] Total Protein 7.3 G/dL Normal 6.4-8.2 [facility] ([place]) Comment on above: Performed By: #### H CV1 #### [place] [address] #### GFR, CMP, LIPID, TSH #### [address] [address] Urea nitrogen [Mass/Vol] 12 mg/dL Normal 7-18 [facility] ([place]) Comment on above: Performed By: #### H CV1 #### [place] [address] #### GFR, CMP, LIPID, TSH #### [address] [address] HCVon 12-09-2021 Hep C Ab Non-Reactive Normal Non-Reactive [facility] ([place]) Comment on above: Performed By: #### H CV1 #### [place] [address] #### GFR, CMP, LIPID, TSH #### [address] [address] Hep C Ab Int Normal [facility] ([place]) Comment on above: Result Comment: Nonr eactive: Samples with a value < 0.80 are considered nonreactive (negative) for antibodies to HCV. A negative test result does not exclude the possibility of exposure to or infection with HCV. HCV antibodies may be undetectable in some stages of the infection and in some clinical conditions. See Interp Performed By: #### H CV1 #### [address] [address] #### GFR, CMP, LIPID, TSH #### [place] [id number] [place], [place] [address] LABORATORYOrdered By: January Summers on 12-09-2021 Albumin BCP dye [Mass/Vol] 3.7 G/dL Invalid Interpretation Code 3.5 - 5.0 G/dL AO ADM SS Albumin/Globulin [Mass ratio] 1.0 {ratio} Invalid Interpretation Code 1.1 - 2.5 ratio AO ADM SS ALP [Catalytic activity/Vol] 115 U/L Invalid Interpretation Code 40 - 135 U/L AO ADM SS ALT With P-5'-P [Catalytic activity/Vol] 34 U/L Invalid Interpretation Code 14 - 59 U/L AO ADM SS AST With P-5'-P [Catalytic activity/Vol] 14 U/L Invalid Interpretation Code 10 - 40 U/L AO ADM SS Bilirubin [Mass/Vol] 0.5 mg/dL Invalid Interpretation Code 0.2 - 1.0 mg/dL AO ADM SS Calcium [Mass/Vol] 9.1 mg/dL Invalid Interpretation Code 8.4 - 10.2 mg/dL AO ADM SS Chloride [Moles/Vol] 105 mmol/L Invalid Interpretation Code 98 - 107 mmol/L AO ADM SS Cholesterol [Mass/Vol] 164 mg/dL Invalid Interpretation Code 0 - 200 mg/dL AO ADM SS Cholesterol in HDL [Mass/Vol] 39 mg/dL Invalid Interpretation Code 40 - 60 mg/dL AO ADM SS Cholesterol in LDL [Mass/Vol] 97 mg/dL Invalid Interpretation Code 0 - 130 mg/dL AO ADM SS CO2 [Moles/Vol] 26 mmol/L Invalid Interpretation Code 22 - 29 mmol/L AO ADM SS Creatinine [Mass/Vol] 0.78 mg/dL Invalid Interpretation Code 0.55 - 1.02 mg/dL AO ADM SS Electrolyte Balance 9.0 mEq/L Invalid Interpretation Code 4.0 - 15.0 mEq/L AO ADM SS Globulin 3.6 G/dL Invalid Interpretation Code AO ADM SS Glucose [Mass/Vol] 80 mg/dL Invalid Interpretation Code 70 - 105 mg/dL AO ADM SS Potassium [Moles/Vol] 4.6 mmol/L Invalid Interpretation Code 3.5 - 5.1 mmol/L AO ADM SS Protein [Mass/Vol] 7.3 G/dL Invalid Interpretation Code 6.4 - 8.2 G/dL AO ADM SS Sodium [Moles/Vol] 140 mmol/L Invalid Interpretation Code 136 - 145 mmol/L AO ADM SS Triglyceride [Mass/Vol] 138 mg/dL Invalid Interpretation Code 0 - 150 mg/dL AO ADM SS TSH Qn 1.15 m[IU]/L Invalid Interpretation Code 0.36 - 3.74 mcIU/mL AO ADM SS Urea nitrogen [Mass/Vol] 12 mg/dL Invalid Interpretation Code 7 - 18 mg/dL AO ADM SS Urea nitrogen/Creatinine [Mass ratio] 15 ratio Invalid Interpretation Code 7 - 27 ratio AO ADM SS LABORATORYOrdered By: SYSTEM SYSTEM on 12-09-2021 GFR 108 ml/min/1.73sqm Invalid Interpretation Code AO Chemistry S GFR Non- 89 ml/min/1.73sqm Invalid Interpretation Code AO Chemistry S LABORATORYOrdered By: Oneyda Munoz on 12-09-2021 Hep C Ab Non-Reactive (12/09/21 12:32 PM) Invalid Interpretation Code Non-Reactive AH ADM SS Hep C Ab Int Nonreactive: Samples with a value < 0.80 are considered nonreactive (negative) for antibodies to HCV.A negative test result does not exclude the possibility of exposure to or infection with HCV. HCV antibodies may be undetectable in some stages of the infection and in some clinical conditions. Invalid Interpretation Code Chemistry S LIPIDon 12-09-2021 Cholesterol [Mass/Vol] 164 mg/dL Normal 0-200 [facility] ([place]) Comment on above: Result Comment: Chol esterol Reference Interval: Less than 200 Desirable 200-239 Borderline high risk 240 and above High risk Performed By: #### H CV1 #### [address] [address] #### GFR, CMP, LIPID, TSH #### [address] [address] Cholesterol in HDL [Mass/Vol] 39 mg/dL Low 40-60 [facility] ([place]) Comment on above: Performed By: #### H CV1 #### [place] [address] #### GFR, CMP, LIPID, TSH #### [address] [address] Cholesterol in LDL [Mass/Vol] 97 mg/dL Normal 0-130 [facility] ([place]) Comment on above: Performed By: #### H CV1 #### [place] [address] #### GFR, CMP, LIPID, TSH #### [address] [address] Triglyceride [Mass/Vol] 138 mg/dL Normal 0-150 [facility] ([place]) Comment on above: Result Comment: Trig lyceride Reference Interval: Less than 150 Normal 150-199 Borderline high risk 200-499 High risk 500 or higher Very high risk Performed By: #### H CV1 #### [place] [address] #### GFR, CMP, LIPID, TSH #### [address] [address] TSHon 12-09-2021 TSH Qn 1.15 m[IU]/L Normal 0.36-3.74 [facility] ([place]) Comment on above: Performed By: #### H CV1 #### [place] [address] #### GFR, CMP, LIPID, TSH #### [address] [address] [employer] Cytology Reporton 2021 [employer] Cytology Report . Pathology Reports Accession: Collected Date/Time: Received Date/Time: Pathologist: [id number] 11/26/2021 09:49 EDT 11/26/2021 18:00 EDT MARIELA GRAYSON MD [employer] Cytology Report SPECIMEN: Specimen Description: Liquid Prep Reflex ASCUS Specimen: Cervical/Endocervic al Screening or Diagnostic: Screening RELEVANT HISTORY: LMP: 11/18/21 [id number] SPECIMEN ADEQUACY: SATISFACTORY FOR EVALUATION ENDOCERVICAL/TRANSF ORMATIONAL ZONE COMPONENT PRESENT INTERPRETATION/RESU LTS: NEGATIVE FOR INTRAEPITHELIAL LESION OR MALIGNANCY SUGGESTIONS/EDUCATI ONAL NOTES: THIS CASE HAS BEEN REVIEWED FOR 10% Q.C. RESCREEN COMMENT: This Pap Test was successfully processed and evaluated with the assistance of the [employer] Thin Prep Test Imaging System. Electronically Signed by Pathology report verified by [facility] Screened by: BIJAN TILLMAN Electronically signed by MARIELA GRAYSON Sign-Out Date: 12/03/2021 14:18 Performing Lab: [facility], [address] [place] [address] Disclaimer The Pap test is a screening test for cervical cancer. As evidenced by published data, it is sub ject to both inherent false negative and false positive results. Your patient's results should be interpreted in context with pertinent clinical history including gynecological examination. Normal [facility] ([place]) Encounters Encounter Date Encounter Type Care Provider Facility Start: 12-29-2023 End: 12-29-[address] [facility] Start: 07-02-2022 End: 07-07-[address] ARYA SONG MD. Facility:B Start: 07-02-2022 End: 07-06-2022 Outreach Lab ARYA SONG MD [facility] Start: 04-09-2022 End: 04-10-2022 Emergency department patient visit DR GENE MORENO [facility] Start: 12-09-2021 End: 12-10-2021 ambulatory BIRD AHMADI DO Facility:B Start: 12-09-2021 End: 12-09-2021 Patient encounter procedure BIRD AHMADI DO [facility] Start: 11-26-2021 End: 12-01-2021 ambulatory BIRD AHMADI DO Facility:B Start: 11-26-2021 End: 12-01-2021 Encounter for gynecological examination (general) (routine) without abnormal findings BIRD AHMADI DO Facility:B Start: 11-26-2021 End: 11-30-2021 Outreach Lab BIRD AHMADI DO [facility] Procedures Date Procedure Procedure Detail Performing Clinician Start: 09-04-2016 section JENIFER AHMADI DO Immunizations Immunization Date Immunization Notes Care Provider Deidre little 09-05-2016 measles/mumps/rubell a virus vaccine BIRD AHMADI DO [facility] 06-07-2016 tetanus toxoid, redu judith diphtheria toxoid, and acellular pertussis vaccine, adsorbed BIRD AHMADI DO [facility] 04-24-2016 influenza virus vacc ine, unspecified formulation BIRD AHMADI DO [facility] 04-13-2016 influenza virus vacc ine, unspecified formulation BIRD AHMADI DO [facility] 03-03-2009 Human Papillomavirus Quadval BIRD AHMADI DO [facility] 11-01-2008 Human Papillomavirus Quadval BIRD DAIANA DO [facility] 09-03-2008 Human Papillomavirus Quadval BIRD DAIANA DO [facility] 03-17-2001 measles/mumps/rubell a virus vaccine BIRD AHMADI DO [facility] 03-17-2001 poliovirus vaccine, inactivated BIRD AHMADI DO [facility] Payers Date Payer Category Payer Medicaid [id number] 1995 Unknown [id number] [id number] 1995 Unknown [id number] 2.16.8 [id number] 1995 Unknown [id number] 2.16.8 [id number] 1995 Unknown [id number] 2.16.8 [id number] 1995 Unknown [id number] [id number] Unknown [id number] Social History Date Type Detail Facility Start: 03-17-2019 Tobacco smoking status Heavy t obacco smoker (finding) [facility] Comment on above: Daily Tobacco/Smoke Exposure Sex Assigned At Sex [facility] Clinical Note 07-04-2022 Note Date & [...] Locations *1: This test was performed at: [facility], [address] [place] [address], [id number] , [facility] ([place]) Evaluation + Plan note Laboratory Note Date & Type Note Facility Evaluation + Plan note Future Appointments Appointment Date:06/02/2022 10:30:00 AM Scheduled Provider:BIRD AHMADI DO Location:[facility] Appointment Type:PC OV Follow Up Future Scheduled TestsPathology [employer] Request 11/26/21Thyroid Stimulating Hormone 11/26/21Lipid Profile 11/26/21Hepatitis C Antibody IgG 11/26/21Complete Metabolic Panel 11/26/21 [facility] Evaluation + Plan note Laboratory Note Date & Type Note Facility Evaluation + Plan note Future Appointments Appointment Date:06/02/2022 10:30:00 AM Scheduled Provider:BIRD AHMADI DO Location:[facility] Appointment Type:PC OV Follow Up Future Scheduled TestsPathology [employer] Request 11/26/21 [facility] Evaluation + Plan note Laboratory Note Date & Type Note Facility Evaluation + Plan note Future Appointments Appointment Date:12/02/2022 02:30:00 PM Scheduled Provider:BIRD AHMADI DO Location:[facility] Appointment Type:PC Wellness Annual Future Scheduled TestsPathology [employer] Request 11/26/21Urine Culture 07/02/22 [facility] Hospital course Narrative Note Date & Type Note Facility Hospital course Narrative No data available for this section [facility] Hospital Discharge instructions Note Date & Type Note Facility Hospital Discharge instructions No data available for this section [facility] Progress note Note Date & Type Note Facility Progress note No data available for this section [facility] Summary Purpose Family History No Family History Records FoundNo Family History Records FoundNo Family History Records Found Advance Directives No Advanced Directives Records FoundNo Advanced Directives Records FoundNo Advanced Directives Records Found Additional Source Comments Care Team (unrecognized sect ion and content) Personnel Name: BIRD AHMADI DO Address: [address] [place], [place] [address] Personnel Name: BIRD AHMADI DO Address: [address] [place] [address] INFORMATION SOURCE (unrecogn ized section and content) DATE CREATED AUTHOR 04/24/2022 Jose Barba [facility] DATE CREATED AUTHOR AUTHOR'S ORGANIZ ATION 07/07/2022 [facility] ([place]) DATE CREATED AUTHOR AUTHOR'S ORGANIZ ATION 12/30/2023 [facility] Care Team (unrecognized sect ion and content) Care Team Personnel Name: BIRD AHMADI DO Position: P4 Physician - Primary Care Member Role: Primary Care Physician Address: Address: [address] [place] [address] [place] [address] [place] Care Team Related Persons Name: JEANE JOSIE G Address: Home [address] [id number] Address: [address] [id number] Name: AUDI PACO FOR RECORDS PERTAINING TO [...] BE BASED ON THE PRIMARY CLINICAL RECORDS. [employer] provides no warranty or guarantee of the accuracy or completeness of information in this document.
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
[2024-05-16] MEDS: Lactated Ringers 1,000 ML 999 ML IV (06:05)
[2024-05-16] MEDS: Acetaminophen 500 MG Tablet 1000 MG PO ×3 (06:18→17:58)
[2024-05-16 06:29] LABS: Absolute Lymphocyte Count 2.03 X10^3/uL (0.83-4.51); Absolute Neutrophil Count 8.3 X10^3/uL (2.0-7.7); Basophil# 0.04 X10^3/uL; Basophil% 0.4 % (0-1); Eosinophil# 0.07 X10^3/uL; Eosinophils% 0.6 % (0-5); Hematocrit 31.1 % (37-47); Hemoglobin 10.5 g/dL (12.0-15.0); Lymphocyte # 2.03 X10^3/ul (0.83-4.51); Lymphocyte % 17.9 % (19-41); Mean Corp Hgb Conc 33.8 g/dL (32-36); Mean Corpuscular Hgb 30.3 pg (27.0-32.0); Mean Corpuscular Volume 89.6 fL (81-99); Mean Platelet Vol. 9.7 fl (6.2-12.0); Monocyte# 0.67 X10^3/uL; Monocyte% 5.9 % (0-10); NRBC Flagged by Analyzer 0 % (0-5); Neutrophil # 8.28 X10^3/uL (2.7-7.7); Platelet Count 229 K/mm3 (150-450); RBC Distribution Width CV 14.4 % (11.6-14.6); RBC Distribution Width SD 46.2 fl (35.1-43.9); Red Blood Count 3.47 M/mm3 (4.2-5.4); White Blood Count 11.3 K/mm3 (4.4-11.0)
[2024-05-16 06:38] LABS: Bedside Glucose 73 mg/dL (74-106)
--- NOTE | 2024-05-16 07:05 | NURSING ---
report given to Caio Suazo RN who is assuming care of pt at this time
[2024-05-16] MEDS: Sodium Citrate/Citric Acid 30 ML UDC PO (07:12)
--- NOTE | 2024-05-16 07:19 | HP.PCM_ITS ---
History and Physical Date of Admission: 05/16/24 MR#: [id number] Acct: [id number] Name: ESEQUIEL HUNTLEY Rep #: [id number] : 1995 Provider: Dr. 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: No Is patient in pain?: No Feel stressed/tense/nervous/anxious/difficulty sleeping: not at all Allergies No Known Allergies Allergy (Verified 05/14/24 09:51) Medications ?Medication ?Instructions ?Recorded ?Confirmed ?Type PNV 153-FA 400 mcg-om3 35 mg-dha tab PO 09/30/23 05/14/24 History 25 mg-epa 5 mg-fish oil chew tablet blood-glucose meter #1 ea 03/02/24 05/14/24 Rx lancets 30 gauge (Comfort Touch #200 ea 03/14/24 05/14/24 Rx Plus Pressure Activated Safety Lancets) blood sugar diagnostic (Blood #50 ea 05/04/24 05/14/24 Rx Glucose Test strips) lancets (Accu-Chek Softclix #100 ea 05/04/24 05/14/24 Rx Lancets) metformin 500 mg tablet 1,000 mg (2 x 500 mg) PO ONCE #90 05/04/24 05/14/24 Rx tabs Last Menstrual Period: 08/16/23 Zika: Zika virus screening: Negative : No Have you fallen in the past year?: No PFSH PFSH Medical History PCOS (polycystic ovarian syndrome) Surgical History S/P Family History Father Diabetes Hypertension Congenital heart defect hole in heart Grandfather DiabetesGrandmother DiabetesDaughter Congenital heart defect heart murmur- resolved Social History adopted: No household members: children number of children: 1 current occupational status: employed current occupation: [employer] current occupational exposures/hazards: No pets and animals: Yes (Avoid litterbox) pets and animals: cat(s) and dog(s) history of recent travel: No sexually active: Yes Smoking Status: Current every day smoker tobacco type: cigarettes quit status: considering quitting alcohol intake: current alcohol intake frequency: holidays/special occasions only details: Not while substance use type: does not use well-balanced diet: about half the time caffeine: Yes Type: carbonated beverages Number of servings: 1 and coffee Number of servings: 1 eating out: 1-3 times/week during the past year weight has: remained stable what type of physical activity do you participate in: none bryson/samaritan: None seatbelt use: always do you feel safe at home: Yes additional social history: GEORGE Deangelo Beck History 2 Elective abortions Hx Para 1 Spontaneous abortions Hx # Term Pregnancies 1 Ectopic pregnancies Hx # Pregnancies Multiple births # of living children 1 Past Pregnancies Del. Date Name GA/Weeks Outcome Route Bth Weight Infant Gen Labor Lgth Anesthesia Del Locatn Provider FOB 09/04/16 Rkisten 40 live - full term 6 lbs 7 oz F emale [address] [facility] [address] Avinash Da Silva Delivery Date: 09/04/16 Last Updated by: Erendiratyrell Tabor Had emergency , baby holding umbilical cord. Heart rate dropped. HPI 39 WK OB/NST *SM/JV Details: ESEQUIEL HUNTLEY is a 28 year old who presents for routine OB visit. OB Visit PEREZ Calculator Estimated Delivery Date Method Current WG Current Estimate 05/22/24 LMP (Certain) 38w 6d Expected Delivery Route/Plan RLTCS SM Specific Issue/Plans Covid status: [] Flu vaccine: declined Tdap vaccine: given Rhogam: given LARC form signed: declined movement and labor precautions reviewed. Problem list reviewed and updated with the most current plan of care details and appropriate orders placed. Relevant counseling for the gestational age provided. Continue routine care and follow up unless otherwise noted in visit notes/problem list details Initial Weight: Not Recorded Date -?-?-?-?-?-?-?-?-?-?-?-?- EGA Weight BP Urine Prot -?-?-?-?-?-?-?-?-?-?-?-?- Glucose FHR FuHt Pres Dilation -?-?-?-?-?-?-?-?-?-?-?-?- Effaced St Visit Note 10/10/23-?-?-?-?-?-?-?-?-?-?-?-?- 7w 6d 229 lb 113/72 -?-?-?-?-?-?-?-?-?-?-?-?- 160 -?-?-?-?-?-?-?-?-?-?-?-?- CRL- cons with LMP 11/08/23-?-?-?-?-?-?-?-?-?-?-?-?- 12w 0d 227 lb 2 oz 122/78 -?-?-?-?-?-?-?-?-?-?-?-?- 165 -?-?-?-?-?-?-?-?-?-?-?-?- JV- no complaints today. still needs new ob labs. not sure about nipt or 12/05/23-?-?-?-?-?-?-?-?-?-?-?-?- 15w 6d 229 lb 4 oz 120/74 Negative -?-?-?-?-?-?-?-?-?-?-?-?- Negative 154 -?-?-?-?-?-?-?-?-?-?-?-?- MH-No VB or cramping. Reviewed PN labs. Denies concerns 01/05/24-?-?-?-?-?-?-?-?-?-?-?-?- 20w 2d 234 lb 109/76 Negative -?-?-?-?-?-?-?-?-?-?-?-?- Negative 150 -?-?-?-?-?-?-?-?-?-?-?-?- Sm- discussed US findings declines NIPT. no vb cramping. 01/30/24-?-?-?-?-?-?-?-?-?-?-?-?- 23w 6d 237 lb 104/61 -?-?-?-?-?-?-?-?-?-?-?-?- 145 -?-?-?-?-?-?-?-?-?-?-?-?- JV- no lof, vaginal bleeding ,or cramping. plan on monthly growth scans at [facility] and nsts starting 34 weeks. 02/29/24-?-?-?-?-?-?-?-?-?-?-?-?- 28w 1d 238 lb 106/70 Negative -?-?-?-?-?-?-?-?-?-?-?-?- Negative 145 30 -?-?-?-?-?-?-?-?-?-?-?-?- SM- no vb lof good fm no regular ctx discussed setting up csection date prefers halloween 03/14/24-?-?-?-?-?-?-?-?-?-?-?-?- 30w 1d 240 lb 108/71 Negative -?-?-?-?-?-?-?-?-?-?-?-?- Negative 135 32 -?-?-?-?-?-?-?-?-?-?-?-?- JV- glucose log reviewed. has multiple elevated levels both fasting and 2 hour post prandial. goals discussed. starting metformin, nsts and growth scan also ordered 03/27/24-?-?-?-?-?-?-?-?-?-?-?-?- 32w 0d 242 lb 106/70 Negative -?-?-?-?-?-?-?-?-?-?-?-?- Negative 130 -?-?-?-?-?-?-?-?-?-?-?-?- JV- normal glucose log. nst reactive. continue nsts and monitoring at home. 03/30/24-?-?-?-?-?-?-?-?-?-?-?-?- 32w 3d 239 lb 100/67 -?-?-?-?-?-?-?-?-?-?-?-?- 130 -?-?-?-?-?-?-?-?-?-?-?-?- LC- glucose log with elevated fasting and pp. increase metformin to 1000mg at HS and keep 500mg AM. reviewed with JV, agrees with management. 04/02/24-?-?-?-?-?-?-?-?-?-?-?-?- 32w 6d 240 lb 97/61 Negative -?-?-?-?-?-?-?-?-?-?-?-?- Negative 130 35 -?-?-?-?-?-?-?-?-?-?-?-?- KENDAL- glucose log improved. only had 2 fasting levels over 95. plan to continue current plan. NST reactive. 04/05/24-?-?-?-?-?-?-?-?-?-?-?-?- 33w 2d 240 lb 115/76 Negative -?-?-?-?-?-?-?-?-?-?-?-?- Negative 140 -?-?-?-?-?-?-?-?-?-?-?-?- MH-Reactive NST only. Nl glucose log. 04/10/24-?-?-?-?-?-?-?-?-?-?-?-?- 34w 0d 241 lb 114/72 Negative -?-?-?-?-?-?-?-?-?-?-?-?- Negative 150 -?-?-?-?-?-?-?-?-?-?-?-?- MH-NST only reactive. Glucose readings all WNL except 1 that was after birthday cake 04/13/24-?-?-?-?-?-?-?-?-?-?-?-?- 34w 3d 242 lb 111/74 Negative -?-?-?-?-?-?-?-?-?-?-?-?- Negative 150 -?-?-?-?-?-?-?-?-?-?-?-?- SM- no vb lof good fm no regular ctx SM- no vb lof good fm no regular ctx BS controlled 04/17/24-?-?-?-?-?-?-?-?-?-?-?-?- 35w 0d 241 lb 101/65 Negative -?-?-?-?-?-?-?-?-?-?-?-?- Negative 130 -?-?-?-?-?-?-?-?-?-?-?-?- SM- no vb log food fm no regular ctx BS controlled 04/20/24-?-?-?-?-?-?-?-?-?-?-?-?- 35w 3d 241 lb 8 oz 107/69 Negative -?-?-?-?-?-?-?-?-?-?-?-?- Negative 140 -?-?-?-?-?-?-?-?-?-?-?-?- KW- NST only. reactive. 04/24/24-?-?-?-?-?-?-?-?-?-?-?-?- 36w 0d 238 lb 110/69 Negative -?-?-?-?-?-?--?-?-?-?-?-?- Negative 140 -?-?-?-?-?-?-?-?-?-?-?-?- MH-NST only reactive. BS controlled 04/27/24-?-?-?-?-?-?-?-?-?-?-?-?- 36w 3d 240 lb -?-?-?-?-?-?-?-?-?-?-?-?- 130 -?-?-?-?-?-?-?-?-?-?-?-?- LC- bs controlled. gbs obtained. breech on us and lejuanitods. declines ve today. no ctx/lof/vb. good fm. reactive nst. 05/01/24-?-?-?-?-?-?-?-?-?-?-?-?- 37w 0d 242 lb 120/79 Negative -?-?-?-?-?-?-?-?-?-?-?--?- Negative 130 -?-?-?-?-?-?-?-?-?-?-?-?- SM- no vb lof good fm no regular ctx BS controlled 05/04/24-?-?-?-?-?-?-?-?-?-?-?-?- 37w 3d 244 lb 125/81 Negative -?-?-?-?-?-?-?-?-?-?-?-?- Negative 135 -?-?-?-?-?-?-?-?-?-?-?-?- KW- NST only. reactive. refill of metformin sent 05/07/24-?-?-?-?-?-?-?-?-?-?-?-?- 37w 6d 243 lb 106/73 Negative -?-?-?-?-?-?-?-?-?-?-?-?- Negative 140 -?-?-?-?-?-?-?-?-?-?-?-?- MH-NST only reactive MH-NST only reactive.Urine dip was negative/negative 05/10/24-?-?-?-?-?-?-?-?-?-?-?-?- 38w 2d 245 lb 125/77 Negative -?-?-?-?-?-?-?-?-?-?-?-?- Negative -?-?-?-?-?-?-?-?-?-?-?-?- SM- no vb lof good fm no regular ctx BS controlled preop paperwork done 05/14/24-?-?-?-?-?-?-?-?-?-?-?-?- 38w 6d 244 lb 118/76 Negative -?-?-?-?-?-?-?-?-?-?-?-?- Negative 130 -?-?-?-?-?-?-?-?-?-?-?-?- SM- no vb lof good fm no regular ctx BS controlled ACOG First Trimester First Trimester: Discussed Second Trimester Second Trimester: Signs and Symptoms of Labor, Selecting a care provider, Reproductive Life Planning & Contreception, Care Planning, Depression/Anxiety and Intimate Partner Violence; Discussed Tobacco Cessation Third Trimester Third Trimester: Pain Management Plans, Labor support person(s), Immediate Larc, Movement Monitoring, Signs and Symptoms of Preeclampsia and Education ROS Const Reports system reviewed and no additional complaints, except as documented Card Reports system reviewed and no additional complaints, except as documented Resp Reports system reviewed and no additional complaints, except as documented GI Reports system reviewed and no additional complaints, except as documented and Reports nausea Reports system reviewed and no additional complaints, except as documented Musc Reports system reviewed and no additional complaints, except as documented Exam Const General: cooperative, healthy appearing, comfortable and anxious HENMT Head: normal to inspection Nose: external nose normal Face and sinus: normal facial exam Neck Neck: normal visual inspection, full ROM and no lymphadenopathy Thyroid: thyroid normal Chest Chest palpation & inspection: normal inspection of the chest Resp Effort & Inspection: normal respiratory effort GI Inspection: normal to inspection Palpation: soft and other (gravid uterus) Other: infant breech and appropriate size for gestational age Other: Cervical Exam: Extrem General: pedal edema Office Procedures Non-stress Test Non-Stress Test Indications for Monitoring: Yes diabetes Heart Rate Baseline: 130 Heart Rate Variability: moderate Movement: Present Heart Rate Accelerations: Present Decelerations: Absent Contractions: Absent Impression: Yes Reactive Non-Stress Test Category 1 Results POC Urinalysis 2 Dip (Clinic) Office Urine Glucose Negative Last Edit by Abiola Mehta on 05/14/24 10:25 Office Urine Protein Negative Last Edit by Abiola Mehta on 05/14/24 10:25 Coding Level of Care Code Off vis,est,level 3 Diagnoses Breech presentation O32.1XX0 Gestational diabetes mellitus (GDM) in third trimester controlled on oral hypoglycemic drug O24.415 Gestational diabetes mellitus control: oral hypoglycemic-controlled Trimester: third trimester echogenic intracardiac focus on ultrasound O28.3 Severe obesity due to excess calories affecting in second trimester O99.212; E66.01 Obesity type affecting : severe obesity due to excess calories Trimester: second trimester First trimester bleeding O20.9 Supervision of high risk in third trimester O09.93 Trimester: third trimester 38 weeks gestation of Z3A.38 Weeks of gestation: 38 weeks Hx of section Z98.891 Rh negative status during in second trimester O26.892; Z. Trimester: second trimester CPT Codes Non-Stress Test (07222) Assessment and Plan Assessment and Plan (1) Breech presentation: Status: Acute (2) GDM (gestational diabetes mellitus): Status: Acute Qualifiers: Gestational diabetes mellitus control: oral hypoglycemic-controlled Trimester: third trimester Qualified Code(s): O24.415 - Gestational diabetes mellitus in , controlled by oral hypoglycemic drugs Comment: on metformin. start nsts twice weekly at 32 weeks. growth scan ordered for 36 weeks (87%) increased to 1000mg PM and 500mg AM. 03/30 (3) echogenic intracardiac focus on ultrasound: Status: Acute Comment: NIPT offered. (4) Obesity affecting : Status: Acute Qualifiers: Obesity type affecting : severe obesity due to excess calories Trimester: second trimester Qualified Code(s): O99.212 - Obesity complicating , second trimester; E66.01 - Morbid (severe) obesity due to excess calories Comment: HgA1C/nl. plan weekly nsts 34 weeks on, growth US monthly (5) First trimester bleeding: Status: Acute Comment: RHogam 09/26 (6) Supervision of high-risk : Status: Acute Qualifiers: Trimester: third trimester Qualified Code(s): O09.93 - Supervision of high risk , unspecified, third trimester Comment: [id number], PEREZ 05/22/24, girl PC GEORGE Peterson (7) : Status: Acute Qualifiers: Weeks of gestation: 38 weeks Qualified Code(s): Z3A.38 - 38 weeks gestation of Comment: Neg GBS normal anatomy, discussed genetic & carrier testing/declines. Declines AFP (8) Hx of section: Status: Acute Comment: for NRFHTs, considering TOLAC. RLTCS scheduled for 05/24 @ 7:15 with SM, 2&6 wk PP scheduled (9) Rh negative status during : Status: Acute Qualifiers: Trimester: second trimester Qualified Code(s): O26.892 - Other specified related conditions, second trimester; Z67.91 - Unspecified blood type, Rh negative Comment: rhogam given 3/5 for bleeding. given at 8/7 and at delivery if needed. Orders: Orders OB NST Today O24.415 - Gestational diabetes mellitus in , controlled by oral hypoglycemic drugs POC Urinalysis 2 Dip (Clinic) Today Clinical Quality Measures Falls Risk Screening/Assistive Devices Have you fallen in the past year?: No UPDATE- I have seen the patient and performed any clinically relevant updates to the history and physical exam. Miladis Couch MD
[2024-05-16] MEDS: Cefazolin 2 GM in Syringe IV (07:20)
--- NOTE | 2024-05-16 07:21 | EX.PCM.OBRPT ---
Assessment & Plan (1) Breech presentation: (2) GDM (gestational diabetes mellitus): QUALIFIERS: Gestational diabetes mellitus control: oral hypoglycemic-controlled Trimester: third trimester Qualified Code(s): O24.415 - Gestational diabetes mellitus in , controlled by oral hypoglycemic drugs COMMENT: on metformin. start nsts twice weekly at 32 weeks. growth scan ordered for 36 weeks (87%) increased to 1000mg PM and 500mg AM. 03/30 (3) echogenic intracardiac focus on ultrasound: COMMENT: NIPT offered. (4) Obesity affecting : QUALIFIERS: Obesity type affecting : severe obesity due to excess calories Trimester: second trimester Qualified Code(s): O99.212 - Obesity complicating , second trimester; E66.01 - Morbid (severe) obesity due to excess calories COMMENT: HgA1C/nl. plan weekly nsts 34 weeks on, growth US monthly (5) Supervision of high-risk : QUALIFIERS: Trimester: third trimester Qualified Code(s): O09.93 - Supervision of high risk , unspecified, third trimester COMMENT: [id number], PEREZ 05/22/24, girl GEORGE George (6) : QUALIFIERS: Weeks of gestation: 38 weeks Qualified Code(s): Z3A.38 - 38 weeks gestation of COMMENT: Neg GBS normal anatomy, discussed genetic & carrier testing/declines. Declines AFP (7) Hx of section: COMMENT: for NRFHTs, considering TOLAC. RLTCS scheduled for 05/24 @ 7:15 with SM, 2&6 wk PP scheduled (8) Rh negative status during : QUALIFIERS: Trimester: second trimester Qualified Code(s): O26.892 - Other specified related conditions, second trimester; Z67.91 - Unspecified blood type, Rh negative COMMENT: rhogam given 3/5 for bleeding. given at 8/7 and at delivery if needed. (9) delivery delivered: COMMENT: RLTCS Maternal Data Information PEREZ Calculator Estimated Delivery Date Method Current WG Current Estimate 05/22/24 LMP (Certain) 39w 1d Final PEREZ Source: LMP Operative Report (OB) Cecarean Details Procedure Type: low transverse Surgeon: Miladis Couch Date of Procedure: 05/16/24 Procedure Start Time: 07:47 Procedure Stop Time: 08:30 Pre-Operative Diagnosis: Repeat Elective Post-Operative Diagnosis: Same as Pre-operative diagnosis Classification: Scheduled Type of Anesthesia: Spinal Special Medications: none Antibiotic Given: Ancef 2 grams IV x1 Drain: Little to straight drain Estimated Blood Loss: 800 Fluids Replaced: crystalloid Findings Description of surgery: Spinal anesthesia was placed without difficulty. Little catheter was placed. The patient was placed in the dorsal supine position with leftward tilt. Patient was prepped and draped in the normal sterile fashion. Pfannenstiel skin incision was made with the scalpel and carried through to the underlying layer of fascia with the scalpel. Fascia was nicked in the midline and the incision extended laterally. The rectus bellies were dissected off superiorly and inferiorly with out complication both sharply and bluntly. The peritoneum was entered digitally. The incision was stretched and a low transverse uterine incision was made with the scalpel. The buttox was delivered atraumatically and the right and left legs were swept anteriorly and delivered, followed by the body and the arms which were swept anteriorly and delivered. Gentle traction was placed on the mentum to flex the head which was delivered without complication. The cord was clamped and cut and the infant was handed off to awaiting nurse. The placenta was delivered spontaneously immediately following and was noted to be intact and have a three-vessel cord. The uterus was exteriorized cleared of all clots and debris, and the incision was closed in a single layer closure using #1 Monocryl. The ovaries and fallopian tubes were noted to be within normal limits. The uterus was returned to the maternal abdomen and gutters were cleared of all clots and debris. The peritoneum was closed with 3-0 Monocryl in a running fashion. Gloves were changed prior to fascial closure. Fascia was closed with 0 PDS in a running fashion. Subcutaneous tissue was copiously irrigated and the skin was closed with 3-0 Monocryl in a subcuticular fashion. Mepilex dressing was applied without complication. Patient was taken to recovery in stable condition. It was discussed with the patient that based on the clinical information obtained during this encounter, combined with her history, at this time I would recommend repeat cesareans for future deliveries if further pregnancies are desired. Surgical findings: nl uterus tubes ovaries minimal scar tissue breech infant Amniotic Membrane Rupture Type: Artificial Amniotic Fluid Description: Clear Specimen collected: No Cord Vessel Description: 3 Vessels Delayed Cord Clamping: Yes Inspector Eyeglass crime scene technician: Yes Society Reporter: Tiffani Kirkland Tasks completed by fist assist: Opening & closing and Retracting Complications Complications: No Admit VTE Documentation VTE Present on Admission: No VTE Mechan Device Prophylaxis: SCD's Procedures Urinary/Genital 52xxx-59xxx: 00400 delivery+PP Care([facility])
--- NOTE | 2024-05-16 07:22 | PCM.DC ---
Discharge Instructions Diet Discharge Diet: No restrictions Activity Discharge Activity: May Not Drive (for 2 weeks or while taking narcotic pain medications.), May Shower and May Take a Tub Bath (in 7 days) May shower in (days): 0 May resume sexual activity in: 4-6 weeks Weight Bearing Status: Full weight bearing Lifting Restrictions: 20 pounds Dressing / Incision Call your doctor if your incision/area has: Continuous Slow Oozing, Sudden Increased Bleeding, Increased Pain/ Swelling, Increased Redness and Foul Smelling Discharge Call your doctor if you observe: Fever of 101 or Higher and Using more than 1 pad per hour (for 2 hours) Suture Line Care: Avoid Pulling/Pushing and Avoid Pinching/Bending Cleanse incision/area with: Soap & Water and Keep Dressing Clean & Dry Follow Up Care Please Follow Up With: Miladis Couch MD When: Call [phone] to make an appointment for an incision check in 1-2 weeks. Test Results: Test results from this visit will be discussed in further detail at your follow-up appointment, if applicable. Discharge Plan Admission Admit Date/Time: 05/16/24 05:33 Attending Provider: Miladis Couch Primary Care Provider: Pavithra Thomason Discharge Orders/Prescriptions Prescriptions: New oxycodone-acetaminophen [Percocet] 5-325 mg tablet 1 tab PO Q6H PRN (Reason: pain) 7 Days Qty: 20 0RF naproxen 500 mg tablet 500 mg PO BID PRN PRN (Reason: Pain) Qty: 30 1RF Discontinued metformin 500 mg tablet 1,000 mg PO BID Rx Instructions: 1000mg at HS and 500mg at AM No Action PNV no.[id number] 400 mcg-35 mg- 25 mg-5 mg tablet,chewable 1 tab PO DAILY (DME) lancets [Comfort Touch Plus Safety Lanc] 30 gauge misc See Rx Instructions .Route Qty: 200 6RF Rx Instructions: As directed (DME) Blood Glucose Test Strip See Rx Instructions .ROUTE .MEDSUPPLY Qty: 50 6RF Rx Instructions: Check blood sugars Fasting and 2 hours after breakfast, lunch, and dinner. (DME) lancets [Accu-Chek Softclix Lancets] Misc See Rx Instructions .ROUTE .MEDSUPPLY Qty: 100 6RF Rx Instructions: Check blood sugars fasting and 2 hours after breakfast, lunch, and dinner. (DME) blood-glucose meter Misc See Rx Instructions .ROUTE .MEDSUPPLY Qty: 1 0RF Rx Instructions: As directed Referrals / Follow Up: Pavithra Thomason DO [Primary Care Provider] - Disposition Disposition (needs filled in before D/C Order can be placed): Home, Self Care
[2024-05-16 07:38] LABS: Syphilis Antibodies Non-reactive
[2024-05-16] MEDS: TRANEXAMIC ACID 1,000 MG in 0.9% Normal Saline (100mL Bag) 100 ML 440 MG IV (08:15)
[2024-05-16] MEDS: Oxytocin 15 Units/NS 250ml 15 UNITS/250 ML IV.SOLN 83 UNITS IV (08:50)
[2024-05-16] MEDS: Ketorolac 30 MG/ML Syringe IV ×3 (09:17→20:20)
[2024-05-16 09:55] LABS: Bedside Glucose 82 mg/dL (74-106)
[2024-05-16] MEDS: Senna/Docusate Sodium 1 Tablet PO (10:07)
[2024-05-16] MEDS: Rho(D) Immune Globulin 300 MCG (1500 Unit) Syringe IV (15:38)
[2024-05-16] MEDS: Enoxaparin 40 MG/0.4 ML Syringe SC (20:20)
[2024-05-16] MEDS: 0.9% Saline Lock 10 ML Syringe IV (20:20)
[2024-05-17] VITALS: BP 116/76; PULSE 107; RESP 16; TEMP 36.6; O2SAT 95
[2024-05-17] MEDS: Acetaminophen 500 MG Tablet 1000 MG PO ×3 (00:09→11:56)
[2024-05-17] MEDS: 0.9% Saline Lock 10 ML Syringe IV (03:26)
[2024-05-17] MEDS: Ketorolac 30 MG/ML Syringe IV (03:26)
[2024-05-17 03:28] VITALS: BP 134/73; PULSE 84; RESP 17; TEMP 36.1; O2SAT 98
[2024-05-17 06:04] LABS: Hemoglobin 9.5 g/dL (12.0-15.0); Mean Corp Hgb Conc 33.9 g/dL (32-36); Mean Corpuscular Hgb 30.4 pg (27.0-32.0); Mean Corpuscular Volume 89.7 fL (81-99); Mean Platelet Vol. 9.3 fl (6.2-12.0); Platelet Count 203 K/mm3 (150-450); RBC Distribution Width CV 14.5 % (11.6-14.6); RBC Distribution Width SD 46.5 fl (35.1-43.9); Red Blood Count 3.12 M/mm3 (4.2-5.4); White Blood Count 15.9 K/mm3 (4.4-11.0)
[2024-05-17 06:10] LABS: Bedside Glucose 83 mg/dL (74-106)
[2024-05-17 07:28] VITALS: BP 130/79; PULSE 99; RESP 18; TEMP 36.6; O2SAT 100
[2024-05-17] MEDS: Enoxaparin 40 MG/0.4 ML Syringe SC (07:55)
--- NOTE | 2024-05-17 08:09 | PN.OBGYN_ITS ---
Subjective Subjective Patient doing well without complaints. Tolerating PO. Ambulating and voiding without difficulty. Feeding well. Denies chest pain, shortness of breath, calf pain/swelling, fevers, chills, lightheadedness. Objective Data Objective Data Vital Signs: Vital Signs Temp Pulse Resp BP Pulse Ox O2 Del Method 97.9 F 99 18 130/79 H 100 Room Air 05/17/24 07:28 05/17/24 07:28 05/17/24 07:28 05/17/24 07:28 05/17/24 07:28 05/17/24 07:49 Oxygen Delivery Method Room Air Weight: 244 lb 12.8 oz Body Mass Index (BMI) 43.3 Intake & Output: Intake and Output for Last 24 Hours 05/15/24 05/16/24 05/17/24 23:59 23:59 23:59 Intake Total 1580 / 1580 Output Total 1950 / 1950 250 / 250 Balance -370 / -370 -250 / -250 Lab / Micro Data 05/17/24 05:51 Labs: Laboratory Results - last 24 hr 05/16/24 09:21: POC Glucose 82 05/16/24 11:10: Screen NEGATIVE, Baby's Blood Type A POSITIVE, Baby's PRAKASH NEGATIVE 05/17/24 05:45: POC Glucose 83 05/17/24 05:51: WBC 15.9 H, RBC 3.12 L, Hgb 9.5 L, Hct 28.0 L, MCV 89.7, MCH 30.4, MCHC 33.9, RDW Std Deviation 46.5 H, RDW Coeff of Marisol 14.5, Plt Count 203, MPV 9.3 Physical Exam Const alert and oriented x3 HEENT normocephalic Eyes PERRL Neck full ROM Resp normal respiratory effort GI soft to palpation GI Narrative: FF below U. Dressing dry and intact Palpation: tender other (appropriately) Assessment & Plan (1) delivery delivered: COMMENT: SM RLTCS girl Adalyn [id number] (2) GDM (gestational diabetes mellitus): QUALIFIERS: Gestational diabetes mellitus control: oral hypoglycemic-controlled Trimester: third trimester Qualified Code(s): O24.415 - Gestational diabetes mellitus in , controlled by oral hypoglycemic drugs COMMENT: on metformin. start nsts twice weekly at 32 weeks. growth scan ordered for 36 weeks (87%) increased to 1000mg PM and 500mg AM. 03/30 (3) Rh negative status during : QUALIFIERS: Trimester: second trimester Qualified Code(s): O 26.892 - Other specified related conditions, second trimester; Z67.91 - Unspecified blood type, Rh negative COMMENT: rhogam given 35 for bleeding. given at 8/7 and at delivery if needed. PLAN: Plan s/p LTCS PPD # 1 1. routine post care 2. breast feeding- support given 3. rh negative 4. rubella immune 5. glucose stable 6. home today
[2024-05-17] MEDS: Naproxen 500 MG Tablet PO ×2 (09:12→15:58)
[2024-05-17] MEDS: Senna/Docusate Sodium 1 Tablet PO (09:13)
[2024-05-17 14:30] VITALS: BP 118/72; PULSE 107; RESP 18; TEMP 36.8; O2SAT 99
== END 2024-05-17 16:45 | disposition home or self-care (01) | DRG 540 ==
PROVIDERS: Admitting Provider Obstetrics & Gynecology; PCP Family Medicine; Visit Provider Obstetrics & Gynecology
PROC: 10D00Z1 Extraction of Products of Conception, Low, Open Approach (ICD-10-PCS; CPT 59514; principal; 2024-05-16 07:00)
DX: O32.1XX0 Maternal care for breech presentation, not applicable or unspecified (principal); O99.214 Obesity complicating childbirth; E66.01 Morbid (severe) obesity due to excess calories; O24.425 Gestational diabetes mellitus in childbirth, controlled by oral hypoglycemic drugs; F17.210 Nicotine dependence, cigarettes, uncomplicated; O35.BXX0 Maternal care for other (suspected) fetal abnormality and damage, fetal cardiac anomalies, not applicable or unspecified; O34.211 Maternal care for low transverse scar from previous cesarean delivery; Z37.0 Single live birth; O99.334 Smoking (tobacco) complicating childbirth; O26.893 Other specified pregnancy related conditions, third trimester; Z67.91 Unspecified blood type, Rh negative; Z3A.38 38 weeks gestation of pregnancy; Z87.59 Personal history of other complications of pregnancy, childbirth and the puerperium
CPT/HCPCS: 59050; 82962; 85025; 85027; 85461; 86780; 86850; 86900; 86901; 90384; 99221; J7120; A4216; G0378; J2790; J2791

== ENCOUNTER → 2024-06-27 | Outpatient (CLI) | payer MEDICAID, SELFPAY ==
[2024-07-06 08:08] LABS: HPV Reflexed? NOT INDICATED
== END | disposition home or self-care (01) ==
LOC: LABSPEC 15:13
PROVIDERS: PCP Family Medicine; Referring Provider Obstetrics & Gynecology; Visit Provider Obstetrics & Gynecology
DX: Z12.4 Encounter for screening for malignant neoplasm of cervix (principal)
CPT/HCPCS: 88175; G0145